=== PATIENT | male | born 1990 | race Caucasian/White ===

== ENCOUNTER 2018-09-21 15:30 | Emergency (ER) | payer SELFPAY ==
[~2018-09-21] VITALS: Ht 172.7 cm; Wt 73.0 kg
[2018-09-21] MEDS ORDERED: IBUPROFEN 600MG TABLET PO ONE (17:30)
[2018-09-21] MEDS ORDERED: HYDROCODONE/ACETAMINOPHEN 5/325MG TABLET PO ONE (17:30)
[2018-09-21 19:47] VITALS: BP 107/62
== END 2018-09-21 21:17 | disposition home or self-care (01) ==
LOC: ER 15:30
DX: S46.911A Strain of unspecified muscle, fascia and tendon at shoulder and upper arm level, right arm, initial encounter (principal); F12.10 Cannabis abuse, uncomplicated; V49.88XA Car occupant (driver) (passenger) injured in other specified transport accidents, initial encounter; Y93.89 Activity, other specified; Y92.89 Other specified places as the place of occurrence of the external cause; Y99.8 Other external cause status
CPT/HCPCS: 73030; 99283